=== PATIENT | female | born 1980 | race Hispanic/Latino ===

== ENCOUNTER 2024-02-22 10:07 | Day surgery (SDC) | payer BC ==
[2024-02-22] MEDS ORDERED: Acetaminophen 500 MG TAB ONE (10:43)
[2024-02-22] MEDS: Acetaminophen 500 MG TAB PO SCH (10:44)
[2024-02-22] MEDS: Ferumoxytol (NON ERSD) 510 MG in 0.9 % Sodium Chloride 150 ML IVPB SCH (10:46)
[2024-02-22 11:44] VITALS: BP 129/80; TEMP 98.6
== END 2024-02-22 12:04 | disposition home or self-care (01) ==
LOC: ONC/OP 10:07
PROVIDERS: ATTEND Student in an Organized Health Care Education/Training Program
DX: D50.0 Iron deficiency anemia secondary to blood loss (chronic) (principal)
CPT/HCPCS: 96365; Q0138

== ENCOUNTER 2024-03-24 08:46 | Outpatient (CLI) | payer BC | END 2024-03-24 08:47 | disposition home or self-care (01) | LOC: BICCT 08:46 | PROVIDERS: ATTEND Student in an Organized Health Care Education/Training Program | DX: R10.9 Unspecified abdominal pain (principal) | CPT/HCPCS: 74176 ==